=== PATIENT | male | born 1965 | race Caucasian/White ===

== ENCOUNTER 2016-09-11 15:33 | Emergency (ER) | payer SELFPAY ==
[2016-09-11 15:45] VITALS: BP 158/108; PULSE 105; RESP 16; TEMP 97.9; O2SAT 92
--- NOTE | 2016-09-11 15:58 | EDPHY ---
H & P Time Seen by Provider: 09/11/16 15:36 HPI/ROS: HPI Alcohol intoxication. Wants detox. 51-year-old male by ambulance. 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 States that he was on the bus and asked the business administration instructor to take him to [email or web address] for he has an appointment at 5 o'clock p.m. this evening to enter their detox program. The business administration instructor would not do this. The patient was very intoxicated on the bus. The business administration instructor called EMS and police and the patient was delivered to our emergency department. There is no history of traumatic injury or assault. He has no other complaint. He states that he drinks about a gal of hard liquor a day. His last drink was just prior to arrival. He reports that he also uses methamphetamine. States last use was about 7 days ago. ROS: Constitutional: No fever, no chills. No weakness. Eyes: No discharge. No changes in vision. ENT: No sore throat. No nasal congestion or rhinorrhea. Respiratory: No cough. No shortness of breath. Cardiac: No chest pain, no palpitations. Gastrointestinal: No abdominal pain, no vomiting, no diarrhea. Genitourinary: No hematuria. No dysuria or increased frequency with urination. Musculoskeletal: No back pain. No neck pain. No myalgias or arthralgias. Skin: No rashes. Neurological: No headache. No focal weakness or altered sensation. Past medical history: Hypoglycemia, alcohol abuse. Substance abuse. Social history: Smoker. Homeless. As above. Physical Exam: General Appearance: Sleeping but easily arousable. Dirty and disheveled. Strong odor of alcohol on his breath. This patient is responding to questions appropriately and in full sentences albeit with slurred speech. This patient appears well-hydrated and well-nourished. Eyes: Pupils equal and round no pallor or injection. No lid edema, erythema or injection. Respiratory: There are no retractions, lungs are clear to auscultation with good air movement bilaterally. Cardiovascular: Regular rate and rhythm. No murmur. Gastrointestinal: Abdomen is soft and nontender, no masses, bowel sounds normal. No focal tenderness at McBurney's point. No Villareal sign. Neurological: Motor sensory function is grossly intact. Cranial nerves are normal. Skin: Warm and dry, no rashes. Musculoskeletal: Neck is supple and nontender. Extremities are symmetrical. All joints range without pain or impingement. Psychiatric: No agitation. No depression. Database: EKG: Imaging: Procedures: Emergency department course: On my evaluation, the patient is very specific that he has an appointment at 5: 00 p.m. at [facility] to into their detox program he reports that his mother is going to pay the to [employer] for this on arrival. He is requesting transport to [facility]. He does not present with any emergent medical condition based on history and physical. Plan is to transport him by taxi to [facility] for detox. Cab voucher arrange for the patient. We contacted [facility] They are indeed expecting this patient at 5:00 p.m.. The patient was sent to [facility] by [employer]. Differential Diagnosis: The differential diagnosis on this patient includes but is not limited to alcohol abuse, alcohol intoxication, substance abuse. Head injury, other traumatic injury unlikely. This represents a partial list of diagnoses considered. These considerations are based on history, physical exam, past history, reassessment and diagnostic testing. Smoking Status: Current every day smoker Constitutional: Initial Vital Signs Temperature (C) 36.6 C 09/11/16 15:42 Heart Rate 105 H 09/11/16 15:42 Respiratory Rate 16 09/11/16 15:42 Blood Pressure 158/108 H 09/11/16 15:42 O2 Sat (%) 92 09/11/16 15:42 O2 Delivery Mode Room Air Allergies/Adverse Reactions: Sulfa (Sulfonamide Antibiotics) Allergy (Verified 06/02/16 11:43) Home Medications: Medication Instructions Recorded NK [No Known Home Meds] 06/02/16 Departure - Departure Disposition: Home, Routine, Self-Care Clinical Impression: Alcohol intoxication, Alcohol dependence Condition: Good Instructions: Abuse of Alcohol (ED) Additional Instructions: Read and follow provided instructions. Go straight to [facility] for your detox appointment time at 5:00 p.m.. Return to the emergency department for worsening symptoms or other serious concerns. Referrals: NONE *PRIMARY CARE P,. [Primary Care Provider] - As per Instructions
== END 2016-09-11 16:20 | disposition home or self-care (01) ==
LOC: EDUNIT#
DX: F10.229 Alcohol dependence with intoxication, unspecified (principal); F17.200 Nicotine dependence, unspecified, uncomplicated